=== PATIENT | female | born 1985 | race American Indian/Alaskan Native ===

== ENCOUNTER 2017-10-07 13:38 | Emergency (ER) | payer MEDICAID ==
[2017-10-07 13:44] VITALS: BP 123/62
[2017-10-07] MEDS ORDERED: TYLENOL PO ONE (14:10)
[2017-10-07] MEDS ORDERED: ZOFRAN ODT PO ONE (14:10)
--- NOTE | 2017-10-07 14:29 | Emergency Department Report ---
Blank Doc - Documentation Documentation: Patient is a 32-year-old female who's had several days of nausea as well as some spotting when she uses the restroom. Patient also has some lower abdominal crampy discomfort. Patient took a home test which was positive. Her last normal Mr. Del Cid was in July and August she did have 2 days of very light spotting with this was not normal for her normal menses. Patient will have urinalysis beta Quant an ultrasound performed here in emergency department
[2017-10-07 16:16] LABS: Bacteria,Urine 1+ /HPF (Negative); Bilirubin,Urine NEG (Negative); Blood,Urine NEG (Negative); Color,Urine Yellow (Yellow); Mucus,Urine FEW /HPF
--- NOTE | 2017-10-07 16:32 | Ultrasound Report ---
FINAL REPORT PROCEDURE: US OB TECHNIQUE: Real-time transabdominal and transvaginal sonography of the uterus, placenta, amniotic fluid, adnexa, and fetus was performed with image documentation. Measurements were obtained to determine age/size. M-mode Doppler was used to document heartbeat. CPT 43126 and 57293 HISTORY: Lower abdominal pain. Spotting. COMPARISON: No prior studies are available for comparison. FINDINGS: LMP: 08/10/2017. Clinical age: 8 weeks 2 days. EDC: 05/17/2018. CRL: 5 mm, which corresponds to a gestational age of: 6 weeks, 2 days. Yolk Sac: Normal. Embryonic Cardiac Activity: 120 beats per minute. Gestational Sac: Mean sac diameter 1.5 cm, 6 weeks 2 days. Small subchorionic bleed. Amniotic fluid: Normal. Cervix: Normal. Uterus: 8.4 x 4.7 x 6.2 cm. 3.5 x 2.93 cm uterine fibroid. Smaller 1.3 x 1.95 cm uterine fibroid. Third 1.83 cm uterine fibroid. Fourth 2.33 cm uterine fibroid. For the most part these appear intramural and/or subserosal, although the one measuring 1.83 centimeters may have a submucosal component. Right Ovary: 4.3 x 2.7 x 3.7 cm. Normal flow. 3 cm complex hypoechoic lesion. Left Ovary: 2.8 x 1.5 x 2.9 cm. Normal flow. Estimated delivery date: 05/31/2018. IMPRESSION: 1. Single live intrauterine gestation at approximately 6 weeks 2 days. 2. EDC by US 05/31/2018. 3. Complete anatomic survey at 18-20 weeks suggested. At this time small subchorionic bleed, complex right ovarian lesion which likely represents complex cyst, and uterine fibroids can be re-evaluated.
--- NOTE | 2017-10-07 16:58 | Emergency Department Report ---
HPI - General Chief Complaint: Vaginal Bleeding Time Seen by Provider: 10/07/17 14:09 - HPI HPI: 32-year-old female 001 who presents to ED complaining of lower pelvic cramping and spotting. Patient states she first noticed that the last week. Patient states that she took a test 3 days ago and saw that it was positive. Patient states last menstrual period was in August the beginning of the month does not recall what day. Patient states she has not been to any other facility. She denies heavy vaginal bleeding and states that it spotting and noticed sometimes after she wipes. She admits to urinary frequency. And states taking vitamins. She denies vaginal discharge, dysuria, ED Past Medical Hx - Past Medical History Previous Medical History?: No Additional medical history: Childbirth - Surgical History Past Surgical History?: No - Social History Smoking Status: Never Smoker Substance Use Type: None - Medications Home Medications: Home Medications Medication Instructions Recorded Confirmed Last Taken Type Loperamide [Imodium] 2 mg PO Q2HR PRN #10 capsule 05/13/15 Unknown Rx Ondansetron [Zofran Odt] 4 mg PO Q6HR PRN #15 tab.rapdis 05/13/15 Unknown Rx Nitrofurantoin Monohyd/M-Cryst 100 mg PO BID #14 capsule 10/07/17 Unknown Rx [Macrobid 100 mg Capsule] Pnv No.95/Ferrous Fum/Folic AC 1 each PO DAILY #30 tablet 10/07/17 Unknown Rx [ Formula Tablet] ED Review of Systems ROS: Stated complaint: ABD PAIN Other details as noted in HPI Constitutional: denies: chills, fever Eyes: denies: eye pain, eye discharge, vision change ENT: denies: ear pain, throat pain Respiratory: denies: cough, shortness of breath, wheezing Cardiovascular: denies: chest pain, palpitations Endocrine: no symptoms reported Gastrointestinal: denies: abdominal pain, nausea, diarrhea Genitourinary: denies: urgency, dysuria, discharge Musculoskeletal: denies: back pain, joint swelling, arthralgia Skin: denies: rash, lesions Neurological: denies: headache, weakness, paresthesias Psychiatric: denies: anxiety, depression Hematological/Lymphatic: denies: easy bleeding, easy bruising Physical Exam - Physical Exam Vital Signs: Vital Signs 10/07/17 10/07/17 13:41 14:24 Temperature 98.4 F Pulse Rate 76 Respiratory 18 18 Rate Blood Pressure 123/62 O2 Sat by Pulse 100 Oximetry Physical Exam: GENERAL: Alert and oriented x3, no apparent distress, Normal Gait, atraumatic. HEAD: Head is normocephalic and a-traumatic. NECK: Supple. Non edematous, No lymphadenopathy or thyromegaly. No C-spine tenderness LUNGS: Symetrical with respiration, No wheezing, no rales or crackles, CTAB. HEART: S1, S2 present, regular rate and rhythm without murmur, no rubs, no gallops. Non tender to palpation ABDOMEN: No organomegaly was noted,Positive bowel sounds, soft, and non- distended. Nontender to palpation on all Quadrants, NO CVA tenderness. BACK: Full range of motion, no spinal tenderness, nontender to palpation. SKIN: Warm and dry, No lesions, No ulceration or induration present. ED Course Vital Signs 10/07/17 10/07/17 13:41 14:24 Temperature 98.4 F Pulse Rate 76 Respiratory 18 18 Rate Blood Pressure 123/62 O2 Sat by Pulse 100 Oximetry ED Medical Decision Making - Radiology Data Radiology results: report reviewed, image reviewed HISTORY: Lower abdominal pain. Spotting. COMPARISON: No prior studies are available for comparison. FINDINGS: LMP: 08/10/2017. Clinical age: 8 weeks 2 days. EDC: 05/17/2018. CRL: 5 mm, which corresponds to a gestational age of: 6 weeks, 2 days. Yolk Sac: Normal. Embryonic Cardiac Activity: 120 beats per minute. Gestational Sac: Mean sac diameter 1.5 cm, 6 weeks 2 days. Small subchorionic bleed. Amniotic fluid: Normal. Cervix: Normal. Uterus: 8.4 x 4.7 x 6.2 cm. 3.5 x 2.93 cm uterine fibroid. Smaller 1.3 x 1.95 cm uterine fibroid. Third 1.83 cm uterine fibroid. Fourth 2.33 cm uterine fibroid. For the most part these appear intramural and/or subserosal, although the one measuring 1.83 centimeters may have a submucosal component. Right Ovary: 4.3 x 2.7 x 3.7 cm. Normal flow. 3 cm complex hypoechoic lesion. Left Ovary: 2.8 x 1.5 x 2.9 cm. Normal flow. Estimated delivery date: 05/31/2018. IMPRESSION: 1. Single live intrauterine gestation at approximately 6 weeks 2 days. 2. EDC by US 05/31/2018. 3. Complete anatomic survey at 18-20 weeks suggested. At this time small subchorionic bleed, complex right ovarian lesion which likely represents complex cyst, and uterine fibroids can be re-evaluated. Transcribed By: KRISTIN Dictated By: ROSELIA ANDERS MD Electronically Authenticated By: ROSELIA ANDERS MD Signed Date/Time: 10/07/17 1629 - Medical Decision Making 32-year-old female presents to ED with threatened last urinary tract infection. ED course: Pt received ultra sound, CBC, urinalysis, test and quantitative ED All labs within normal limits, urinalysis positive for urinary tract infection quantitative elevated matching gestation age. Patient states that bleeding is resolved usually just mild spotting Patient is states that she has not been to [facility] yet but will make an appointment shortly Ultrasound shows IUP gestation at 6 weeks with 120 bpm . See reported above Vital signs normalized patient is in no acute distress. I discussed with the patient if follow-up with her [facility]. Referrals given. Patient states she will call and make an appointment. Discussed with patient to avoid intercourse for the next week or 2 until follow- up with OB I discussed all labs and ultrasound findings with the patient. I discussed with the patient that he if bleeding worsens or new symptoms develop to return to ED immediately. Critical care attestation.: If time is entered above; I have spent that time in minutes in the direct care of this critically ill patient, excluding procedure time. ED Disposition Clinical Impression: Threatened in early Uterine fibroid Qualifiers: Uterine leiomyoma location: intramural and subserous Qualified Code(s): D25.1 - Intramural leiomyoma of uterus; D25.2 - Subserosal leiomyoma of uterus UTI (urinary tract infection) Qualifiers: Urinary tract infection type: acute cystitis Hematuria presence: with hematuria Qualified Code(s): N30.01 - Acute cystitis with hematuria Disposition: - TO HOME OR SELFCARE Is pt being admited?: No Does the pt Need Aspirin: No Condition: Stable Instructions: Threatened Miscarriage (ED), Uterine Fibroids (ED), Urinary Tract Infection in Women (ED) Additional Instructions: Make sure to follow up with the [facility] as discussed. Take all your medications as you've been prescribed. If you have any worsening symptoms or develop new symptoms please return to ED immediately. Prescriptions: Nitrofurantoin Monohyd/M-Cryst [Macrobid 100 mg Capsule] 100 mg PO BID #14 capsule Pnv No.95/Ferrous Fum/Folic AC [ Formula Tablet] 1 each PO DAILY #30 tablet Referrals: PRIMARY CAREMD [Primary Care Provider] - 3-5 Days WALESKA MCCOY MD [Staff Physician] - 3-5 Days [facility] [Provider Group] - 3-5 Days [facility] [Provider Group] - 3-5 Days [facility] [Provider Group] - 3-5 Days Forms: Accompanied Note, Work/School Release Form(ED) Time of Disposition: 17:00
== END 2017-10-07 17:50 | disposition home or self-care (01) ==
LOC: ED 13:38
DX: O20.0 Threatened abortion (principal); O23.11 Infections of bladder in pregnancy, first trimester; O34.12 Maternal care for benign tumor of corpus uteri, second trimester; D25.1 Intramural leiomyoma of uterus; D25.2 Subserosal leiomyoma of uterus; Z3A.01 Less than 8 weeks gestation of pregnancy
CPT/HCPCS: 36415; 76801; 76817; 81001; 84702; 86900; 86901; 99284; Q0162

== ENCOUNTER 2019-02-06 06:29 | Emergency (ER) | payer OTHER ==
[2019-02-06] MEDS ORDERED: IBUPROFEN PO ONE (07:30)
[2019-02-06] MEDS ORDERED: LIDOCAINE VISCOUS 2% MM ONE (07:30)
[2019-02-06] MEDS ORDERED: TESSALON PERLES PO ONE (07:30)
--- NOTE | 2019-02-06 08:11 | XRay Report ---
PROCEDURE: XR CHEST ROUTINE 2V TECHNIQUE: PA and lateral chest radiographs were obtained. HISTORY: cough COMPARISONS: None. FINDINGS: No mediastinal shift. Cardiac silhouette is not enlarged. No pneumothorax, effusion, or focal pulmo nary opacity. No acute skeletal finding. IMPRESSION: No focal pulmonary opacity. This document is electronically signed by Logan Borrego MD., February 06 2019 08:09:39 AM ET
--- NOTE | 2019-02-06 08:18 | Emergency Department Report ---
Upper Respiratory HPI - HPI Chief Complaint: Upper Respiratory Infection Stated Complaint: SORE THROAT Time Seen by Provider: 02/06/19 07:22 Duration: 2 weeks URI Symptoms: Rhinorrhea: Yes, Sore Throat: Yes, Ear Pain: No, Cough: Yes, Shortness of Breath: No, Sick Contacts: No, Unable to Take Fluids: No, Urine Output Abnormal: No, Listless Behavior: No Other History: This is a 33-year-old female nontoxic, well nourished in appearance, no acute signs of distress presents to the ED with c/o of productive cough, sore throat, body aches, rhinorrhea, nasal congestion x2 weeks. Patient describes productive cough as yellow mucus production. Patient agrees to sick contact with son. Patient denies any recent travels, long car, recent hospital stays. Patient denies any calf pain or calf tenderness. Patient denies any chest pain, short of breath, fever, chills, nausea, vomiting, hemoptysis, numbness, tingling, headache or stiff neck. Deneis any allergies or PMH. - Home Meds and Allergies Home Medications: Previous Rx's Medication Instructions Recorded Last Taken Type Loperamide [Imodium] 2 mg PO Q2HR PRN #10 capsule 05/13/15 Unknown Rx Ondansetron [Zofran Odt] 4 mg PO Q6HR PRN #15 tab.rapdis 05/13/15 Unknown Rx Nitrofurantoin Monohyd/M-Cryst 100 mg PO BID #14 capsule 10/07/17 Unknown Rx [Macrobid 100 mg Capsule] Pnv No.95/Ferrous Fum/Folic AC 1 each PO DAILY #30 tablet 10/07/17 Unknown Rx [ Formula Tablet] Azithromycin [Zithromax Z-JEREMIAH] 250 mg PO DAILY #6 tablet 02/06/19 Unknown Rx Benzonatate [Tessalon Perles] 100 mg PO Q8HR PRN #20 capsule 02/06/19 Unknown Rx Ibuprofen [Motrin] 600 mg PO Q8H PRN #20 tablet 02/06/19 Unknown Rx amLODIPine [Norvasc] 10 mg PO DAILY #30 tab 02/06/19 Unknown Rx Allergies/Adverse Reactions: Allergies Allergy/AdvReac Type Severity Reaction Status Date / Time No Known Allergies Allergy Unverified 05/13/15 11:17 ED Review of Systems ROS: Stated complaint: SORE THROAT Other details as noted in HPI Constitutional: denies: chills, fever Eyes: denies: eye pain, eye discharge, vision change ENT: throat pain, congestion. denies: ear pain Respiratory: cough. denies: shortness of breath, wheezing Cardiovascular: denies: chest pain, palpitations Endocrine: no symptoms reported Gastrointestinal: denies: abdominal pain, nausea, diarrhea Genitourinary: denies: urgency, dysuria, discharge Musculoskeletal: denies: back pain, joint swelling, arthralgia Skin: denies: rash, lesions Neurological: denies: headache, weakness, paresthesias Psychiatric: denies: anxiety, depression Hematological/Lymphatic: denies: easy bleeding, easy bruising ED Past Medical Hx - Past Medical History Previous Medical History?: No Additional medical history: Childbirth - Surgical History Past Surgical History?: No - Social History Smoking Status: Never Smoker - Medications Home Medications: Home Medications Medication Instructions Recorded Confirmed Last Taken Type Loperamide [Imodium] 2 mg PO Q2HR PRN #10 capsule 05/13/15 Unknown Rx Ondansetron [Zofran Odt] 4 mg PO Q6HR PRN #15 tab.rapdis 05/13/15 Unknown Rx Nitrofurantoin Monohyd/M-Cryst 100 mg PO BID #14 capsule 10/07/17 Unknown Rx [Macrobid 100 mg Capsule] Pnv No.95/Ferrous Fum/Folic AC 1 each PO DAILY #30 tablet 10/07/17 Unknown Rx [ Formula Tablet] Azithromycin [Zithromax Z-JEREMIAH] 250 mg PO DAILY #6 tablet 02/06/19 Unknown Rx Benzonatate [Tessalon Perles] 100 mg PO Q8HR PRN #20 capsule 02/06/19 Unknown Rx Ibuprofen [Motrin] 600 mg PO Q8H PRN #20 tablet 02/06/19 Unknown Rx amLODIPine [Norvasc] 10 mg PO DAILY #30 tab 02/06/19 Unknown Rx ED Bronchiolitis Physical Exam - Exam General: Vital signs noted. No distress. Alert and acting appropriately. Neurologic: Alert and oriented, no deficits. Musculoskeletal: Unremarkable. ED Physical Exam - General Limitations: No Limitations General appearance: alert, in no apparent distress - Head Head exam: Present: atraumatic, normocephalic - Eye Eye exam: Present: normal appearance - Expanded ENT Exam Expanded Ear exam: Present: normal external inspection Mouth exam: Present: normal external inspection. Absent: drooling, trismus, muffled voice Throat exam: Positive: tonsillar erythema, other (uvula midline). Negative: tonsillomegaly, tonsillar exudate, R peritonsillar mass, L peritonsillar mass - Neck Neck exam: Present: normal inspection, full ROM. Absent: tenderness, meningismus, lymphadenopathy - Respiratory Respiratory exam: Present: normal lung sounds bilaterally. Absent: respiratory distress, wheezes, rales, rhonchi, stridor, chest wall tenderness, accessory muscle use, decreased breath sounds, prolonged expiratory - Cardiovascular Cardiovascular Exam: Present: regular rate, normal rhythm, normal heart sounds. Absent: bradycardia, tachycardia, irregular rhythm, systolic murmur, diastolic murmur, rubs, gallop - Extremities Exam Extremities exam: Present: normal inspection, full ROM, normal capillary refill - Back Exam Back exam: Present: normal inspection, full ROM - Neurological Exam Neurological exam: Present: alert, oriented X3, normal gait - Psychiatric Psychiatric exam: Present: normal affect, normal mood - Skin Skin exam: Present: warm, dry, intact, normal color. Absent: rash ED Course Vital Signs 02/06/19 02/06/19 06:39 07:39 Temperature 98.0 F Pulse Rate 71 Respiratory 20 18 Rate Blood Pressure 168/124 O2 Sat by Pulse 96 Oximetry - Reevaluation(s) Reevaluation #1: 02/06/19 08:15 Patient is speaking in full sentences with no signs of distress noted. ED Medical Decision Making - Medical Decision Making This is a 33-year-old female that presents with bronchitis and pharyngitis. Patient is stable and was examined by me. Chest x-ray has been obtained and dictated by radiologist with normal exam. Patient is notified of x-ray results with no questions noted. Due to patient having symptoms of upper respiratory infection and worsening I will treat patient empirically with zpak. Patient was instructed to increase hydration, rest and take Motrin for fever episodes. Patient received motrin and tesslone perrls in the ED. Vitals stable. Patient is nonfebrile and normal heart rate. Patient was instructed Follow-up with a primary care doctor in 3-5 days or if symptoms worsen and continue return to emergency room as soon as possible. At time time of discharge, the patient does not seem toxic or ill in appearance. No acute signs of distress noted. Patient agrees to discharge treatment plan of care. No further questions noted by the patient. Critical care attestation.: If time is entered above; I have spent that time in minutes in the direct care of this critically ill patient, excluding procedure time. ED Disposition Clinical Impression: Bronchitis Pharyngitis Qualifiers: Pharyngitis/tonsillitis etiology: unspecified etiology Qualified Code(s): J02.9 - Acute pharyngitis, unspecified HTN (hypertension) Qualifiers: Hypertension type: unspecified Qualified Code(s): I10 - Essential (primary) hypertension Disposition: TO HOME OR SELFCARE Is pt being admited?: No Does the pt Need Aspirin: No Condition: Stable Instructions: Acute Bronchitis (ED), Hypertension (ED) Additional Instructions: Follow-up with a primary care doctor in 3-5 days or if symptoms worsen and cont inue return to emergency room as soon as possible. Keep a daily diary of your blood pressure and presented to primary care doctor. Prescriptions: Ibuprofen [Motrin] 600 mg PO Q8H PRN #20 tablet PRN Reason: Pain amLODIPine [Norvasc] 10 mg PO DAILY #30 tab Benzonatate [Tessalon Perles] 100 mg PO Q8HR PRN #20 capsule PRN Reason: Cough Azithromycin [Zithromax Z-JEREMIAH] 250 mg PO DAILY #6 tablet Referrals: [facility] SADI [Primary Care Provider] - 3-5 Days PRIMARY MD CAIO [Referring] - 3-5 Days BIN HARPER MD [Staff Physician] - 3-[address] [facility] [Outside] - 3-5 Days [facility] [Outside] - 3-5 Days Forms: Work/School Release Form(ED)
[2019-02-06 08:42] VITALS: BP 105/72
== END 2019-02-06 08:42 | disposition home or self-care (01) ==
LOC: ED 06:29
DX: J40 Bronchitis, not specified as acute or chronic (principal); I10 Essential (primary) hypertension; Z79.899 Other long term (current) drug therapy
CPT/HCPCS: 71046; 99283

== ENCOUNTER 2019-05-10 12:58 | Emergency (ER) | payer SELFPAY ==
--- NOTE | 2019-05-10 13:29 | Event Note ---
ED Screening Note Date of service: 05/10/19 Time: 13:26 ED Screening Note: 34 y o female preesents with n/v with abd pain x 2 days states dysuria and vaginal d/c x 1 week This initial assessment/diagnostic orders/clinical plan/treatment(s) is/are subject to change based on patients health status, clinical progression and re- assessment by fellow clinical providers in the ED. Further treatment and workup at subsequent clinical providers discretion. Patient/guardian urged not to elope from the ED as their condition may be serious if not clinically assessed and managed. Initial orders include: ua,upt. wet prep [email or web address]
[2019-05-10 14:05] LABS: HCG Qualitative,Urine Negative (Negative)
[2019-05-10 14:06] LABS: Bacteria,Urine 1+ /HPF (Negative); Bilirubin,Urine NEG (Negative); Blood,Urine NEG (Negative); Color,Urine Yellow (Yellow); Mucus,Urine FEW /HPF; Urobilinogen,Urine < 2.0 mg/dL (<2.0)
[2019-05-10 14:39] LABS: Basophils % (Auto) 0.5 % (0.0-1.8); Eosinophils % (Auto) 0.2 % (0.0-4.3); Hematocrit 35.6 % (30.3-42.9); Hemoglobin 11.7 gm/dl (10.1-14.3); Lymphocytes # (Auto) 0.8 K/mm3 (1.2-5.4); Lymphocytes % (Auto) 14.3 % (13.4-35.0); Mean Corpuscular HGB Conc 33 % (30-34); Mean Corpuscular Volume 89 fl (79-97); Monocytes # (Auto) 0.4 K/mm3 (0.0-0.8); Monocytes % (Auto) 6.6 % (0.0-7.3); Platelet Count 211 K/mm3 (140-440); Red Blood Count 4.02 M/mm3 (3.65-5.03); Red Cell Distribution Width 13.9 % (13.2-15.2)
[2019-05-10] MEDS ORDERED: ONDANSETRON 4 MG ODT TAB PO ONE (14:55)
--- NOTE | 2019-05-10 14:56 | Emergency Department Report ---
ED Abdominal Pain HPI - General Chief Complaint: Abdominal Pain Stated Complaint: STOMACH PAIN/VOMIT Time Seen by Provider: 05/10/19 13:25 Source: patient Mode of arrival: Ambulatory Limitations: No Limitations - History of Present Illness Initial Comments: Patient reports N/V, abdominal pain, vaginal discharge and dysuria that started yesterday MD Complaint: abdominal pain Onset/Timin -: days(s) Location: diffuse Radiation: none Migration to: no migration Severity: severe Severity scale (0 -10): 8 Quality: aching Consistency: constant Improves With: nothing Worsens With: nothing Context: other (none) Associated Symptoms: nausea, dysuria. denies: vomiting, diarrhea, fever, chills, constipation, hematemesis, hematochezia, melena, hematuria, anorexia, syncope Treatments Prior to Arrival: other - Related Data LMP Date: 04/10/19 LMP (females 10-50): 1 month Previous Rx's Medication Instructions Recorded Last Taken Type Loperamide [Imodium] 2 mg PO Q2HR PRN #10 capsule 05/13/15 Unknown Rx Ondansetron [Zofran Odt] 4 mg PO Q6HR PRN #15 tab.rapdis 05/13/15 Unknown Rx Nitrofurantoin Monohyd/M-Cryst 100 mg PO BID #14 capsule 10/07/17 Unknown Rx [Macrobid 100 mg Capsule] Pnv No.95/Ferrous Fum/Folic AC 1 each PO DAILY #30 tablet 10/07/17 Unknown Rx [ Formula Tablet] Azithromycin [Zithromax Z-JEREMIAH] 250 mg PO DAILY #6 tablet 02/06/19 Unknown Rx Benzonatate [Tessalon Perles] 100 mg PO Q8HR PRN #20 capsule 02/06/19 Unknown Rx Ibuprofen [Motrin] 600 mg PO Q8H PRN #20 tablet 02/06/19 Unknown Rx amLODIPine [Norvasc] 10 mg PO DAILY #30 tab 02/06/19 Unknown Rx Ondansetron [Zofran Odt] 4 mg PO Q8HR #10 tab.rapdis 05/10/19 Unknown Rx metroNIDAZOLE [Flagyl] 500 mg PO Q12HR #14 tab 05/10/19 Unknown Rx Allergies Allergy/AdvReac Type Severity Reaction Status Date / Time No Known Allergies Allergy Unverified 05/13/15 11:17 ED Review of Systems ROS: Stated complaint: STOMACH PAIN/VOMIT Other details as noted in HPI Constitutional: denies: chills, fever Eyes: denies: eye pain, eye discharge, vision change ENT: denies: ear pain, throat pain Respiratory: denies: cough, orthopnea, shortness of breath, SOB with exertion, SOB at rest, stridor, wheezing Cardiovascular: denies: chest pain, palpitations Endocrine: no symptoms reported Gastrointestinal: abdominal pain, nausea. denies: diarrhea Genitourinary: dysuria, discharge (vaginal). denies: urgency Musculoskeletal: denies: back pain, joint swelling, arthralgia Skin: denies: rash, lesions Neurological: denies: headache, weakness, paresthesias Psychiatric: denies: anxiety, depression Hematological/Lymphatic: denies: easy bleeding, easy bruising ED Past Medical Hx - Past Medical History Previous Medical History?: No Additional medical history: Childbirth - Surgical History Past Surgical History?: No - Social History Smoking Status: Never Smoker - Medications Home Medications: Home Medications Medication Instructions Recorded Confirmed Last Taken Type Loperamide [Imodium] 2 mg PO Q2HR PRN #10 capsule 05/13/15 Unknown Rx Ondansetron [Zofran Odt] 4 mg PO Q6HR PRN #15 tab.rapdis 05/13/15 Unknown Rx Nitrofurantoin Monohyd/M-Cryst 100 mg PO BID #14 capsule 10/07/17 Unknown Rx [Macrobid 100 mg Capsule] Pnv No.95/Ferrous Fum/Folic AC 1 each PO DAILY #30 tablet 10/07/17 Unknown Rx [ Formula Tablet] Azithromycin [Zithromax Z-JEREMIAH] 250 mg PO DAILY #6 tablet 02/06/19 Unknown Rx Benzonatate [Tessalon Perles] 100 mg PO Q8HR PRN #20 capsule 02/06/19 Unknown Rx Ibuprofen [Motrin] 600 mg PO Q8H PRN #20 tablet 02/06/19 Unknown Rx amLODIPine [Norvasc] 10 mg PO DAILY #30 tab 02/06/19 Unknown Rx Ondansetron [Zofran Odt] 4 mg PO Q8HR #10 tab.rapdis 05/10/19 Unknown Rx metroNIDAZOLE [Flagyl] 500 mg PO Q12HR #14 tab 05/10/19 Unknown Rx ED Physical Exam - General Limitations: No Limitations General appearance: alert, in no apparent distress - Respiratory Respiratory exam: Present: normal lung sounds bilaterally. Absent: respiratory distress, wheezes, rales, rhonchi, stridor, chest wall tenderness, accessory muscle use, decreased breath sounds, prolonged expiratory - Cardiovascular Cardiovascular Exam: Present: regular rate, normal rhythm, normal heart sounds. Absent: systolic murmur, diastolic murmur, rubs, gallop - GI/Abdominal GI/Abdominal exam: Present: soft, normal bowel sounds. Absent: distended, tenderness, guarding, rebound, rigid - External exam: Present: normal external exam. Absent: erythema, swelling, lesions, lacerations, ecchymosis, bleeding Speculum exam: Present: vaginal discharge (moderate creamy), cervical discharge. Absent: erythema, vaginal bleeding, foreign body, tissue, laceration Bi-manual exam: Present: normal bi-manual exam. Absent: cervical motion tendernes, adnexal tenderness, adnexal mass, uterine enlargement, uterine tenderness - Extremities Exam Extremities exam: Present: normal inspection, full ROM, normal capillary refill - Back Exam Back exam: Present: normal inspection, full ROM. Absent: tenderness, CVA tenderness (R), CVA tenderness (L), muscle spasm, paraspinal tenderness, vertebral tenderness, rash noted - Neurological Exam Neurological exam: Present: alert, oriented X3, CN II-XII intact, normal gait, reflexes normal. Absent: motor sensory deficit - Psychiatric Psychiatric exam: Present: normal affect, normal mood - Skin Skin exam: Present: warm, dry, intact, normal color. Absent: rash ED Course Vital Signs 05/10/19 05/10/19 13:26 16:59 Temperature 98.5 F 98.5 F Pulse Rate 84 76 Respiratory 16 18 Rate Blood Pressure 108/70 Blood Pressure 136/79 [Right] O2 Sat by Pulse 97 99 Oximetry ED Medical Decision Making - Lab Data Result diagrams: 05/10/19 14:14 05/10/19 14:14 Lab Results 05/10/19 05/10/19 05/10/19 Range/Units 14:14 14:14 Unknown WBC 5.4 (4.5-11.0) K/mm3 RBC 4.02 (3.65-5.03) M/mm3 Hgb 11.7 (10.1-14.3) gm/dl Hct 35.6 (30.3-42.9) % MCV 89 (79-97) fl MCH 29 (28-32) pg MCHC 33 (30-34) % RDW 13.9 (13.2-15.2) % Plt Count 211 (140-440) K/mm3 Lymph % (Auto) 14.3 (13.4-35.0) % Stark % (Auto) 6.6 (0.0-7.3) % Eos % (Auto) 0.2 (0.0-4.3) % Baso % (Auto) 0.5 (0.0-1.8) % Lymph # 0.8 L (1.2-5.4) K/mm3 Stark # 0.4 (0.0-0.8) K/mm3 Eos # 0.0 (0.0-0.4) K/mm3 Baso # 0.0 (0.0-0.1) K/mm3 Seg Neutrophils % 78.4 H (40.0-70.0) % Seg Neutrophils # 4.3 (1.8-7.7) K/mm3 Sodium 138 (137-145) mmol/L Potassium 3.4 L (3.6-5.0) mmol/L Chloride 101.6 (98-107) mmol/L Carbon Dioxide 24 (22-30) mmol/L Anion Gap 16 mmol/L BUN 10 (7-17) mg/dL Creatinine 0.5 L (0.7-1.2) mg/dL Estimated GFR > 60 ml/min BUN/Creatinine Ratio 20 % Glucose 112 H (65-100) mg/dL Calcium 8.6 (8.4-10.2) mg/dL Total Bilirubin 0.40 (0.1-1.2) mg/dL Direct Bilirubin < 0.2 (0-0.2) mg/dL Indirect Bilirubin 0.2 mg/dL AST 11 (5-40) units/L ALT 8 (7-56) units/L Alkaline Phosphatase 96 (35-129) units/L Total Protein 7.2 (6.3-8.2) g/dL Albumin 3.6 L (3.9-5) g/dL Albumin/Globulin Ratio 1.0 % Urine Color Yellow (Yellow) Urine Turbidity Clear (Clear) Urine pH 6.0 (5.0-7.0) Ur Specific Maryneal 1.016 (1.003-1.030) Urine Protein 100 mg/dl (Negative) mg/dL Urine Glucose (UA) Neg (Negative) mg/dL Urine Ketones Neg (Negative) mg/dL Urine Blood Neg (Negative) Urine Nitrite Neg (Negative) Ur Reducing Substances Not Reportable Urine Bilirubin Neg (Negative) Urine Ictotest Not Reportable Urine Urobilinogen < 2.0 (<2.0) mg/dL Ur Leukocyte Esterase Tr (Negative) Urine WBC (Auto) 2.0 (0.0-6.0) /HPF Urine RBC (Auto) 3.0 (0.0-6.0) /HPF U Epithel Cells (Auto) 3.0 (0-13.0) /HPF Urine Bacteria (Auto) 1+ (Negative) /HPF Urine Mucus Few /HPF Urine HCG, Qual Negative (Negative) Microbiology 05/10/19 14:55 Cervix Wet Prep - Final > or = 20% clue cells seen No trichomoniasis or yeast seen Polymorphonuclear seen Vital Signs 05/10/19 13:26 Temperature 98.5 F Pulse Rate 84 Respiratory 16 Rate Blood Pressure 108/70 O2 Sat by Pulse 97 Oximetry - Medical Decision Making During the course of ED, laboratory studies were ordered. Patient's laboratory were consistence with BV. Therefore, she was sent home with prescription for Flagyl and Zofran for nausea, instructed not to drink alcoholic beverages while taking antibiotics, as well as 72 hours after completion of antibiotics. She verbalized understanding - Differential Diagnosis Bacterial Vaginosis, Abdominal Pain, UTI, STI, Nausea Critical care attestation.: If time is entered above; I have spent that time in minutes in the direct care of this critically ill patient, excluding procedure time. ED Disposition Clinical Impression: Bacterial vaginosis, Nausea Disposition: DC-01 TO HOME OR SELFCARE Is pt being admited?: No Does the pt Need Aspirin: No Condition: Stable Instructions: Bacterial Vaginosis (ED), Acute Nausea and Vomiting (ED) Additional Instructions: Take medication as directed. No drinking alcoholic beverages while taking antibiotics including 72 hours after completion of medications. Follow up with the selective referral given at discharge. Return back to the ED for worsening symptoms or concerns Prescriptions: metroNIDAZOLE [Flagyl] 500 mg PO Q12HR #14 tab Ondansetron [Zofran Odt] 4 mg PO Q8HR #10 tab.rapdis Referrals: PRIMARY CARE, [Primary Care Provider] - 3-5 Days ARMAAN PARKER MD [Staff Physician] - 3-5 Days Forms: Work/School Release Form(ED) Time of Disposition: 16:48
[2019-05-10 15:05] LABS: Alanine Aminotransferase 8 units/L (7-56); Albumin 3.6 g/dL (3.9-5); BUN/Creatinine Ratio 20; Blood Urea Nitrogen 10 mg/dL (7-17); Calcium 8.6 mg/dL (8.4-10.2); Hemolysis Index 1
[2019-05-10 15:09] LABS: Bilirubin,Direct < 0.2 mg/dL (0-0.2)
[2019-05-10 17:00] VITALS: BP 136/79
== END 2019-05-10 17:05 | disposition home or self-care (01) ==
LOC: ED 12:58
DX: N76.0 Acute vaginitis (principal); B96.89 Other specified bacterial agents as the cause of diseases classified elsewhere; Z79.899 Other long term (current) drug therapy; Z79.1 Long term (current) use of non-steroidal anti-inflammatories (NSAID)
CPT/HCPCS: 36415; 80048; 80076; 81001; 81025; 85025; 87210; 87591; 99284; Q0162

== ENCOUNTER 2022-02-20 09:36 | Emergency (ER) | payer OTHER ==
[2022-02-20 11:16] LABS: Bilirubin,Urine NEG (Negative); Blood,Urine NEG (Negative); Color,Urine Yellow (Yellow); Urobilinogen,Urine < 2.0 mg/dL (<2.0)
[2022-02-20 11:19] LABS: Mucus,Urine FEW /HPF
[2022-02-20 13:39] LABS: Alanine Aminotransferase 23 units/L (7-56); Albumin 3.5 g/dL (3.9-5); Blood Urea Nitrogen 11 mg/dL (7-17); Calcium 9.2 mg/dL (8.4-10.2); Hemolysis Index 20
[2022-02-20 13:43] LABS: BUN/Creatinine Ratio 22
[2022-02-20 14:14] LABS: Hematocrit 36.6 % (30.3-42.9); Mean Corpuscular Volume 89 fl (79-97); Red Blood Count 4.13 M/mm3 (3.65-5.03)
[2022-02-20 14:15] LABS: Mean Corpuscular HGB Conc 33 % (30-34); Platelet Count 290 K/mm3 (140-440); Red Cell Distribution Width 17.2 % (13.2-15.2)
--- NOTE | 2022-02-20 17:07 | Emergency Department Report ---
ED Abdominal Pain HPI - General Chief Complaint: Abdominal Pain Stated Complaint: PAIN IN STOMACH Time Seen by Provider: 02/20/22 13:16 Source: patient Mode of arrival: Ambulatory Limitations: No Limitations - History of Present Illness Initial Comments: 36-year-old black female with no past medical history presents to the emergency department for evaluation of 2-day history of abdominal pain. She states that pain is associated with some intermittent diarrhea but denies nausea, vomiting, fever, dysuria, and vaginal discharge. She states that pain at its worst is 6 out of 10. She states that her last menstrual period was in December 2021. MD Complaint: abdominal pain -: Gradual, days(s) (2) Location: LLQ, RLQ Radiation: none Migration to: no migration Severity: moderate Severity scale (0 -10): 6 Quality: cramping, aching Consistency: intermittent Associated Symptoms: diarrhea. denies: nausea, vomiting, fever, chills, dysuria, hematemesis, hematochezia, melena, hematuria, anorexia, syncope - Related Data LMP (females 10-50): 2 months Previous Rx's Medication Instructions Recorded Last Taken Type Loperamide [Imodium] 2 mg PO Q2HR PRN #10 capsule 05/13/15 Unknown Rx Ondansetron [Zofran Odt] 4 mg PO Q6HR PRN #15 tab.rapdis 05/13/15 Unknown Rx Nitrofurantoin Monohyd/M-Cryst 100 mg PO BID #14 capsule 10/07/17 Unknown Rx [Macrobid 100 mg Capsule] Pnv No.95/Ferrous Fum/Folic AC 1 each PO DAILY #30 tablet 10/07/17 Unknown Rx [ Formula Tablet] Azithromycin [Zithromax Z-JEREMIAH] 250 mg PO DAILY #6 tablet 02/06/19 Unknown Rx Benzonatate [Tessalon Perles] 100 mg PO Q8HR PRN #20 capsule 02/06/19 Unknown Rx Ibuprofen [Motrin] 600 mg PO Q8H PRN #20 tablet 02/06/19 Unknown Rx amLODIPine [Norvasc] 10 mg PO DAILY #30 tab 02/06/19 Unknown Rx Ondansetron [Zofran Odt] 4 mg PO Q8HR #10 tab.rapdis 05/10/19 Unknown Rx metroNIDAZOLE [Flagyl] 500 mg PO Q12HR #14 tab 05/10/19 Unknown Rx Allergies Allergy/AdvReac Type Severity Reaction Status Date / Time No Known Allergies Allergy Unverified 05/13/15 11:17 ED Review of Systems ROS: Stated complaint: PAIN IN STOMACH Other details as noted in HPI Comment: All other systems reviewed and negative Constitutional: denies: chills, fever Eyes: denies: vision change ENT: denies: ear pain, dental pain Respiratory: denies: shortness of breath, SOB with exertion, SOB at rest, stridor Cardiovascular: denies: chest pain, palpitations Gastrointestinal: abdominal pain, diarrhea. denies: nausea, vomiting, hematemesis, melena, hematochezia Genitourinary: denies: urgency, dysuria, frequency, hematuria, discharge Musculoskeletal: denies: back pain Skin: denies: rash, lesions Neurological: denies: headache, weakness ED Past Medical Hx - Past Medical History Previous Medical History?: No Additional medical history: Childbirth - Surgical History Past Surgical History?: No - Social History Smoking Status: Never Smoker - Medications Home Medications: Home Medications Medication Instructions Recorded Confirmed Last Taken Type Loperamide [Imodium] 2 mg PO Q2HR PRN #10 capsule 05/13/15 Unknown Rx Ondansetron [Zofran Odt] 4 mg PO Q6HR PRN #15 tab.rapdis 05/13/15 Unknown Rx Nitrofurantoin Monohyd/M-Cryst 100 mg PO BID #14 capsule 10/07/17 Unknown Rx [Macrobid 100 mg Capsule] Pnv No.95/Ferrous Fum/Folic AC 1 each PO DAILY #30 tablet 10/07/17 Unknown Rx [ Formula Tablet] Azithromycin [Zithromax Z-JEREMIAH] 250 mg PO DAILY #6 tablet 02/06/19 Unknown Rx Benzonatate [Tessalon Perles] 100 mg PO Q8HR PRN #20 capsule 02/06/19 Unknown Rx Ibuprofen [Motrin] 600 mg PO Q8H PRN #20 tablet 02/06/19 Unknown Rx amLODIPine [Norvasc] 10 mg PO DAILY #30 tab 02/06/19 Unknown Rx Ondansetron [Zofran Odt] 4 mg PO Q8HR #10 tab.rapdis 05/10/19 Unknown Rx metroNIDAZOLE [Flagyl] 500 mg PO Q12HR #14 tab 05/10/19 Unknown Rx ED Physical Exam - General Limitations: No Limitations General appearance: alert, in no apparent distress - Head Head exam: Present: atraumatic, normocephalic - Eye Eye exam: Present: normal appearance. Absent: scleral icterus, conjunctival injection, periorbital swelling, periorbital tenderness - ENT ENT exam: Present: normal exam - Neck Neck exam: Present: normal inspection, full ROM. Absent: tenderness, lymphadenopathy - Respiratory Respiratory exam: Present: normal lung sounds bilaterally. Absent: respiratory distress, wheezes, rales, rhonchi, stridor, chest wall tenderness - Cardiovascular Cardiovascular Exam: Present: regular rate, normal heart sounds - GI/Abdominal GI/Abdominal exam: Present: soft, normal bowel sounds. Absent: distended, tenderness, guarding, rebound, rigid - Extremities Exam Extremities exam: Present: normal inspection, normal capillary refill. Absent: pedal edema, joint swelling, calf tenderness - Back Exam Back exam: Present: normal inspection. Absent: CVA tenderness (R), CVA tenderness (L), vertebral tenderness - Neurological Exam Neurological exam: Present: alert, oriented X3, normal gait - Psychiatric Psychiatric exam: Present: normal affect - Skin Skin exam: Present: warm, dry, intact, normal color ED Course Vital Signs 02/20/22 02/20/22 09:50 20:17 Temperature 98.9 F Pulse Rate 70 72 Respiratory 18 12 Rate Blood Pressure 129/67 Blood Pressure 136/73 [Left] O2 Sat by Pulse 98 100 Oximetry ED Medical Decision Making - Lab Data Result diagrams: 02/20/22 11:37 02/20/22 11:37 - Radiology Data Radiology results: report reviewed, image reviewed ultrasound: FINDINGS: Uterus measures 12.9 x 7.7 x 9.2 cm with poorly defined endometrial echo complex. There is a gestational sac in the uterine body with no internal pole but there is a yolk sac. There also appear to be some faint internal echoes. Mean diameter is 22 mm which would correlate with any EGA of 7 weeks and 1 day. Uterine fibroids are present with largest measuring 6.7 cm along the posterior body. The right ovary contains a 2.7 cm mildly complex cystic structure but otherwise appears unremarkable. Left ovary is unremarkable. No pelvic free fluid. IMPRESSION: 1. Intrauterine cystic structure as above likely representing a gestational sac since there is a small yolk sac. No pole identified. Correlate with beta hCG and serial pelvic ultrasound as needed. 2. Complex right ovarian cystic structure may represent a functional cyst. 3. Uterine fibroids. - Medical Decision Making 36-year-old black female with no past medical history presents to the emergency department for evaluation of 2-day history of abdominal pain. She states that pain is associated with some intermittent diarrhea but denies nausea, vomiting, fever, dysuria, and vaginal discharge. She states that pain at its worst is 6 out of 10. She states that her last menstrual period was in December 2021. Physical exam unremarkable. Labs and urine within normal limit, and ultra sound positive for inside the uterus at approximately 7 weeks with no pole noted. Patient advised to follow-up with [facility] next week as planned for further evaluation. And management. She is advised to return to the emergency department for any concerning symptoms. She verbalizes understanding of and agreement with plan of care. Critical care attestation.: If time is entered above; I have spent that time in minutes in the direct care of this critically ill patient, excluding procedure time. ED Disposition Clinical Impression: Abdominal pain during Qualifiers: Trimester: first trimester Qualified Code(s): O26.891 - Other specified related conditions, first trimester Disposition: 01 HOME / SELF CARE / HOMELESS Is pt being admited?: No Does the pt Need Aspirin: No Condition: Stable Instructions: Abdominal Pain During , [id number], Abdominal Pain (ED) Additional Instructions: Follow-up with [facility] within the next week for further evaluation and management. Return to the emergency department as needed. Referrals: IZABEL GARY MD [Staff Physician] - 3-5 Days [facility] [Provider Group] - 3-5 Days [facility] [Provider Group] - 3-5 Days [facility] [Provider Group] - 3-5 Days Forms: Work/School Release Form(ED) Time of Disposition: 18:26
--- NOTE | 2022-02-20 18:05 | Ultrasound Report ---
. OB Ultrasound HISTORY: preg, abdominal pain. TECHNIQUE: Grayscale and color imaging performed. COMPARISON: None FINDINGS: Uterus measures 12.9 x 7.7 x 9.2 cm with poorly defined endometrial echo complex. There is a gestational sac in the uterine body with no internal pole but there is a yolk sac. There also appear to be some faint internal echoes. Mean diameter is 22 mm which would correlate with any EGA o f 7 weeks and 1 day. Uterine fibroids are present with largest measuring 6.7 cm along the posterior body. The right ovary contains a 2.7 cm mildly complex cystic structure but otherwise appears unremarkable. Left ovary is unremarkable. No pelvic free fluid. IMPRESSION: 1. Intrauterine cystic structure as above likely representing a gestational sac since there is a smal l yolk sac. No pole identified. Correlate with beta hCG and serial pelvic ultrasound as needed. 2. Complex right ovarian cystic structure may represent a functional cyst. 3. Uterine fibroids. Signer Name: Ari Garcia MD Signed: 02/20/2022 6:00 PM Workstation Name: [id number]
[2022-02-20 20:18] VITALS: BP 136/73
== END 2022-02-20 20:18 | disposition home or self-care (01) ==
LOC: ED 09:36
DX: O26.891 Other specified pregnancy related conditions, first trimester (principal); R10.30 Lower abdominal pain, unspecified; Z3A.01 Less than 8 weeks gestation of pregnancy
CPT/HCPCS: 36415; 76801; 76817; 80053; 81001; 83690; 84702; 85027; 99284

== ENCOUNTER 2022-03-17 14:39 | Emergency (ER) | payer MEDICAID, OTHER ==
--- NOTE | 2022-03-17 15:14 | Emergency Department Report ---
Stated Complaint: POSSIBLY / STOMACH PAIN - HPI History of Present Illness: 36-year-old female reports to the ER with complaints of lower abdominal pain last night. And vaginal bleeding. Patient reports she is on her last ultrasound her MONITORING TECH was unable to determine the weeks due to early . Patient reports that was about 2 weeks ago. - ROS Review of Systems: Patient reports lower abdominal pain, vaginal bleeding. No chest pain no shortness of breath no weakness no dizziness. - Exam Vital Signs: Vital Signs 03/17/22 15:10 Temperature 99.1 F Pulse Rate 73 Respiratory 20 Rate Blood Pressure 149/72 [Right] O2 Sat by Pulse 98 Oximetry Physical Exam: Patient in no acute distress. Nonlabored breathing. Skin dry, intact. Patient ambulatory with no assistance MSE screening note: Focused history and physical exam performed. Due to findings the following was ordered: MSE complete. Orders to be placed. Patient to be seen by another provider in the back. Triage complete ED Disposition for MSE Condition: Stable
[2022-03-17 16:19] LABS: Basophils % (Auto) 0.5 % (0.0-1.8); Eosinophils % (Auto) 0.8 % (0.0-4.3); Hematocrit 33.2 % (30.3-42.9); Hemoglobin 10.6 gm/dl (10.1-14.3); Lymphocytes # (Auto) 0.9 K/mm3 (1.2-5.4); Lymphocytes % (Auto) 14.6 % (13.4-35.0); Mean Corpuscular HGB Conc 32 % (30-34); Mean Corpuscular Volume 86 fl (79-97); Monocytes # (Auto) 0.4 K/mm3 (0.0-0.8); Monocytes % (Auto) 6.7 % (0.0-7.3); Platelet Count 179 K/mm3 (140-440); Red Blood Count 3.85 M/mm3 (3.65-5.03); Red Cell Distribution Width 15.5 % (13.2-15.2)
--- NOTE | 2022-03-18 06:33 | Emergency Department Report ---
ED Female HPI - General Chief complaint: Vaginal Bleeding Stated complaint: POSSIBLY / STOMACH PAIN Source: patient Mode of arrival: Ambulatory Limitations: No Limitations - History of Present Illness Initial comments: Patient is a A0 36-year-old -[place] female who is approximately 8 weeks gestation presents to the ED with complaint of acute onset persistent intermittent pelvic pain with intermittent vaginal bleeding for the last 2 weeks worse in the last 2 days. Patient states that in the last 2 days, the bleeding has been heavier with worsening pelvic pain. Patient states that he was evaluated by her [facility] [employer] [facility] physician about 2 weeks ago but the heart tone was not identified and as a result she was unaware of how far along she was. Patien t denies fever, chills, dysuria, urinary frequency and urgency, chest pain or shortness of breath, diarrhea, nausea and vomiting, low back pain, change in vision, headache, dizziness and syncope or lightheadedness. MD Complaint: vaginal bleeding, pelvic pain -: Gradual, week(s) (2) Location: suprapubic, other (Vaginal bleeding) Radiation: non-radiating Severity: moderate Severity scale (0 -10): 5 Quality: cramping, dull Consistency: intermittent Improves with: none Worsens with: none Are you Now?: Yes (approximately 8 weeks gestation) Associated Symptoms: denies other symptoms, vaginal bleeding, abdominal pain (suprapubic pain). denies: vaginal discharge, nausea/vomiting, fever/chills, headaches, loss of appetite, dysuria, hematuria, rash, seizure, syncope, weakness, other - Related Data Sexually active: Yes : 2 Para: 1 A: 0 Previous Rx's Medication Instructions Recorded Last Taken Type Loperamide [Imodium] 2 mg PO Q2HR PRN #10 capsule 05/13/15 Unknown Rx Ondansetron [Zofran Odt] 4 mg PO Q6HR PRN #15 tab.rapdis 05/13/15 Unknown Rx Nitrofurantoin Monohyd/M-Cryst 100 mg PO BID #14 capsule 10/07/17 Unknown Rx [Macrobid 100 mg Capsule] Pnv No.95/Ferrous Fum/Folic AC 1 each PO DAILY #30 tablet 10/07/17 Unknown Rx [ Formula Tablet] Azithromycin [Zithromax Z-JEREMIAH] 250 mg PO DAILY #6 tablet 02/06/19 Unknown Rx Benzonatate [Tessalon Perles] 100 mg PO Q8HR PRN #20 capsule 02/06/19 Unknown Rx Ibuprofen [Motrin] 600 mg PO Q8H PRN #20 tablet 02/06/19 Unknown Rx amLODIPine [Norvasc] 10 mg PO DAILY #30 tab 02/06/19 Unknown Rx Ondansetron [Zofran Odt] 4 mg PO Q8HR #10 tab.rapdis 05/10/19 Unknown Rx metroNIDAZOLE [Flagyl] 500 mg PO Q12HR #14 tab 05/10/19 Unknown Rx Allergies Allergy/AdvReac Type Severity Reaction Status Date / Time No Known Allergies Allergy Verified 03/17/22 15:15 ED Review of Systems ROS: Stated complaint: POSSIBLY / STOMACH PAIN Other details as noted in HPI Constitutional: denies: chills, fever Eyes: denies: eye pain, eye discharge, vision change ENT: denies: ear pain, throat pain Respiratory: denies: cough, shortness of breath, wheezing Cardiovascular: denies: chest pain, palpitations Endocrine: no symptoms reported Gastrointestinal: abdominal pain (suprapubic). denies: nausea, diarrhea Genitourinary: abnormal menses (vaginal bleeding). denies: urgency, dysuria, f requency, hematuria, discharge, dyspareunia Musculoskeletal: denies: back pain, joint swelling, arthralgia Skin: denies: rash, lesions Neurological: denies: headache, weakness, paresthesias Psychiatric: denies: anxiety, depression Hematological/Lymphatic: denies: easy bleeding, easy bruising ED Past Medical Hx - Past Medical History Additional medical history: Childbirth - Social History Smoking Status: Never Smoker - Medications Home Medications: Home Medications Medication Instructions Recorded Confirmed Last Taken Type Loperamide [Imodium] 2 mg PO Q2HR PRN #10 capsule 05/13/15 Unknown Rx Ondansetron [Zofran Odt] 4 mg PO Q6HR PRN #15 tab.rapdis 05/13/15 Unknown Rx Nitrofurantoin Monohyd/M-Cryst 100 mg PO BID #14 capsule 10/07/17 Unknown Rx [Macrobid 100 mg Capsule] Pnv No.95/Ferrous Fum/Folic AC 1 each PO DAILY #30 tablet 10/07/17 Unknown Rx [ Formula Tablet] Azithromycin [Zithromax Z-JEREMIAH] 250 mg PO DAILY #6 tablet 02/06/19 Unknown Rx Benzonatate [Tessalon Perles] 100 mg PO Q8HR PRN #20 capsule 02/06/19 Unknown Rx Ibuprofen [Motrin] 600 mg PO Q8H PRN #20 tablet 02/06/19 Unknown Rx amLODIPine [Norvasc] 10 mg PO DAILY #30 tab 02/06/19 Unknown Rx Ondansetron [Zofran Odt] 4 mg PO Q8HR #10 tab.rapdis 05/10/19 Unknown Rx metroNIDAZOLE [Flagyl] 500 mg PO Q12HR #14 tab 05/10/19 Unknown Rx ED Physical Exam - General Limitations: No Limitations General appearance: alert, in no apparent distress - Head Head exam: Present: atraumatic, normocephalic, normal inspection - Eye Eye exam: Present: normal appearance, PERRL, EOMI Pupils: Present: normal accommodation - ENT ENT exam: Present: normal exam, normal orophraynx, mucous membranes moist, TM's normal bilaterally, normal external ear exam - Neck Neck exam: Present: normal inspection, full ROM. Absent: tenderness - Respiratory Respiratory exam: Present: normal lung sounds bilaterally. Absent: respiratory distress, wheezes, rales, rhonchi, chest wall tenderness, accessory muscle use, decreased breath sounds, prolonged expiratory - Cardiovascular Cardiovascular Exam: Present: regular rate, normal rhythm, normal heart sounds. Absent: systolic murmur, diastolic murmur, rubs, gallop - GI/Abdominal GI/Abdominal exam: Present: soft, tenderness (mild suprapubic tenderness), normal bowel sounds. Absent: guarding, rebound, hyperactive bowel sounds, hypoactive bowel sounds, organomegaly - Bi-manual exam: Present: other (pelvic exam deferred) - Extremities Exam Extremities exam: Present: normal inspection, full ROM, normal capillary refill. Absent: tenderness - Back Exam Back exam: Present: normal inspection, full ROM. Absent: tenderness, CVA tenderness (R), CVA tenderness (L), muscle spasm, paraspinal tenderness, vertebral tenderness - Neurological Exam Neurological exam: Present: alert, oriented X3, CN II-XII intact, normal gait, reflexes normal - Psychiatric Psychiatric exam: Present: normal affect, normal mood - Skin Skin exam: Present: warm, dry, intact, normal color. Absent: rash ED Course Vital Signs 08/08/22 08/09/22 15:10 07:38 Temperature 99.1 F Pulse Rate 73 70 Respiratory 20 16 Rate Blood Pressure 149/72 135/69 [Right] O2 Sat by Pulse 98 98 Oximetry ED Medical Decision Making - Lab Data Result diagrams: 03/17/22 15:34 - Radiology Data Radiology results: report reviewed, image reviewed [facility] [address] [id number] Ultrasound Report Signed Patient: ALYSSA LAZO MR#: [id number] : 1985 Acct:[id number] Age/Sex: 36 / F ADM Date: 03/17/22 Loc: ED Attending Dr: Ordering Physician: ELIDA AVILA NP Date of Service: 03/17/22 Procedure(s): US OB <= 14 weeks fetus Accession Number(s): [id number] cc: ELIDA AVILA NP ULTRASOUND OBSTETRIC REASON FOR EXAM: vaginal bleeding TECHNIQUE: Transabdominal ultrasound was performed to evaluate a first trimester . COMPARISON: 02/20/2022 FINDINGS: Uterus: The uterus is enlarged, measuring 12.2 x 6.3 x 6.9 cm. Endometrial stripe measures 5 mm. No IUP is identified. Small intrauterine cystic structure seen on prior exam from 02/20/2022 is no longer seen. Multiple fibroids are present. Right ovary: The right ovary measures 1.8 x 1.6 x 1.8 cm. The right ovary demonstrates a normal sonographic appearance and normal doppler flow. Left ovary: The left ovary measures 3.8 x 2.1 x 2.6 cm. The left ovary demonstrates a normal sonographic appearance and normal doppler flow. Cul-de-sac: There is no free fluid. IMPRESSION: No intrauterine identified. Previously suspected intrauterine gestational sac seen on prior exam from 02/20/2022 is no longer seen. Findings are concerning for spontaneous . Signer Name: Jamaal Beltre MD Signed: 03/18/2022 7:10 AM Workstation Name: [id number] Transcribed By: SEBAS Dictated By: JAMAAL BELTRE MD Electronically Authenticated By: JAMAAL BELTRE MD Signed Date/Time: 03/18/22709 DD/ 4 TD/TT: - Medical Decision Making This is a A0 36-year-old -[place] female who is approximately 8 weeks gestation presents to the ED with complaint of acute onset persistent intermittent pelvic pain with intermittent vaginal bleeding for the last 2 weeks worse in the last 2 days. Patient states that in the last 2 days, the bleeding has been heavier with worsening pelvic pain. Patient states that he was evaluated by her [employer] physician about 2 weeks ago but the heart tone was not identified and as a result she was unaware of how far along she was. In the ED, patient is alert and oriented x3 and is not in any distress. Lab test results were reviewed and are all nonactionable except for hCG quant of 8001 which when compared to the last hCG quant of 18,216 about 3 weeks ago shows a significant decrease in hCG quant. Given the patient's current heavy vaginal bleeding and suprapubic pain and the latest hCG quant studies it is likely that the patient may have had a miscarriage. Transvaginal ultrasound showed no intrauterine identified. Previously suspected intrauterine gestational sac seen on prior exam from 02/20/2022 is no longer seen. Findings are concerning for spontaneous . Patient was therefore discharged home and advised to follow-up with her [employer] physician in 48 hours or return to the ED in 48 hours for serial hCG quant recheck to confirm complete miscarriage. Patient was advised to return to the ED immediately if symptoms get worse. - Differential Diagnosis Miscarriage; UTI; subchorionic bleed; ovarian cyst; ectopic Critical care attestation.: If time is entered above; I have spent that time in minutes in the direct care of this critically ill patient, excluding procedure time. ED Disposition Clinical Impression: Complete miscarriage, Abdominal pain during in first trimester, Vaginal bleeding during Disposition: 01 HOME / SELF CARE / HOMELESS Is pt being admited?: No Does the pt Need Aspirin: No Condition: Stable Instructions: Miscarriage, [id number], Abdominal Pain During , [id number], Abdominal Pain, Adult, [id number] Additional Instructions: All lab test results were reviewed and are all nonactionable except for hCG quant of 8001, which compared to the hCG quant of 3 weeks ago which was 18,206 is significantly reduced consistent with miscarriage. Preliminary report of pelvic ultrasound showed no intrauterine . Therefore maintain a complete pelvic rest, follow-up with your [employer] physician in 3 to 5 days for reevaluation. Return to the ED immediately if symptoms get worse. Referrals: JAILENE LION MD [Staff Physician] - 3-5 Days Forms: Work/School Release Form(ED) Time of Disposition: 07:06 Print Language: NORTHERN IRISH
--- NOTE | 2022-03-18 07:14 | Ultrasound Report ---
ULTRASOUND OBSTETRIC REASON FOR EXAM: vaginal bleeding TECHNIQUE: Transabdominal ultrasound was performed to evaluate a first trimester . COMPARISON: 02/20/2022 FINDINGS: Uterus: The uterus is enlarged, measuring 12.2 x 6.3 x 6.9 cm. Endometrial stripe measures 5 mm. No I UP is identified. Small intrauterine cystic structure seen on prior exam from 02/20/2022 is no longer seen. Multiple fibroids are present. Right ovary: The right ovary measures 1.8 x 1.6 x 1.8 cm. The right ovary demonstrates a normal sonog raphic appearance and normal doppler flow. Left ovary: The left ovary measures 3.8 x 2.1 x 2.6 cm. The left ovary demonstrates a normal sonograp hic appearance and normal doppler flow. Cul-de-sac: There is no free fluid. IMPRESSION: No intrauterine identified. Previously suspected intrauterine gestational sac seen on prior exam from 02/20/2022 is no longer seen. Findings are concerning for spontaneous . Signer Name: Cristian Beltre MD Signed: 03/18/2022 7:10 AM Workstation Name: [id number]
[2022-03-18 08:05] VITALS: BP 135/69
== END 2022-03-18 08:30 | disposition home or self-care (01) ==
LOC: ED 14:39
DX: O03.9 Complete or unspecified spontaneous abortion without complication (principal); R10.9 Unspecified abdominal pain; Z3A.08 8 weeks gestation of pregnancy
CPT/HCPCS: 76801; 76817; 84702; 85025; 86850; 86900; 86901; 99284